=== PATIENT | female | born 2005 | race Caucasian/White ===

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

== ENCOUNTER 2023-07-21 22:02 | Emergency (ER) | payer OTHER, SELFPAY ==
[2023-07-21 22:12] VITALS: BP 117/87; PULSE 78; RESP 16; TEMP 36.9; O2SAT 99; BMI 29.1
--- NOTE | 2023-07-21 23:47 | ED.WOUNDLAC ---
HPI - Wound/Laceration General Chief Complaint: Wound/Laceration Stated Complaint: LT foream animal bite Time Seen by Provider: 07/21/23 23:34 Source: patient Mode of arrival: EMS Limitations: no limitations History of Present Illness HPI narrative: 17-year-old female who presents emergency department for evaluation of left forearm iguana bite. The patient's iguana, Blue, that her forearm this evening prior to coming to the emergency department. Patient states that she washed her wound out with Betadine and then applied butterfly dressing to the wound. Patient is concerned about possible infection so she came to the emergency department for evaluation. Patient's tetanus status is up-to-date. Related Data Previous Rx's Medication Instructions Recorded nitrofurantoin 100 mg PO Q12H 5 days #10 caps 12/16/21 monohydrate/macrocrystals 100 mg capsule (Macrobid) levofloxacin 500 mg tablet 500 mg PO DAILY 5 days #5 tabs 07/21/23 Allergies Allergy/AdvReac Type Severity Reaction Status Date / Time amoxicillin [AMOXICILLIN] Allergy Intermediate HIVES Verified 07/21/23 22:12 Review of Systems Review of Systems: Yes all other systems are reviewed and are negative [facility] Social History Social History Advance Directives: No Advance Directives Information Provided: No Physical Exam Vital Signs: Vital Signs: Last Vital Signs Temp 98.5 F 07/21/23 22:12 Pulse 78 07/21/23 22:12 Resp 16 07/21/23 22:12 BP 117/87 07/21/23 22:12 Pulse Ox 99 07/21/23 22:12 O2 Del Method Room Air 07/21/23 22:12 BMI result Body Mass Index 29.1 Vital signs were normal Exam General: awake, alert, female patient in no distress Left forearm evaluation: Patient has a linear 4.0 cm laceration which does appear to be full skin thickness, the laceration was closed with butterfly dressing by the patient with good opponens of the wound margins. No increased warmth, erythema or drainage of pus Medical Decision Making Medical Decision Making MDM Narrative: 17-year-old female who presents emergency department for evaluation of a guaiac light to her left forearm. Patient does have a 4 cm left forearm laceration she does appear to be full skin thickness but the patient close the wound with butterfly bandages with good opponens of the wound margins. Given that this could be a contaminated wound, stitches would not be appropriate. The butterfly bandages were left in place. Patient was started on prophylactic antibiotics, Levaquin 500 mg once a day for 5 days. She was given her 1st dose here in the emergency department. She was given printed and verbal instructions regarding infection and return precautions Differential Diagnosis Differential Diagnoses: The differential diagnosis associated with the presentation includes Differential diagnosis includes was not limited to laceration, contaminated wound Discharge Plan Discharge Clinical Impression: Bite wound from reptile Qualifiers: Encounter type: initial encounter Qualified Code(s): W59.81XA - Bitten by other nonvenomous reptiles, initial encounter Patient Disposition: Home, Self-Care Additional Instructions: Your wound is a contaminated bite wound therefore stitches would not be appropriate however continue to use the butterfly bandages to keep the wound closed. Watch for signs infection which would include increased redness, increased pain, red streaks traveling up the arm, fever, chills, fatigue or drainage of pus. I am starting you prophylactically on Levaquin 500 mg once a day for 5 days to try to prevent infection. Follow-up with your doctor in 2 days. Please return to the emergency department if your symptoms get worse or if you develop any symptoms that are concerning to you. Prescriptions: New levofloxacin 500 mg tablet 500 mg PO DAILY 5 Days Qty: 5 0RF No Action nitrofurantoin monohyd/m-cryst [Macrobid] 100 mg capsule 100 mg PO Q12H 5 Days Qty: 10 0RF Rx Instructions: must administer with a meal/food
[2023-07-22] MEDS: levoFLOXacin 500 MG TABLET PO (00:04)
== END 2023-07-22 00:06 | disposition home or self-care (01) ==
PROVIDERS: Emergency Provider Emergency Medicine Emergency Medical Services; PCP Nurse Practitioner Primary Care
DX: S51.852A Open bite of left forearm, initial encounter (principal); M79.602 Pain in left arm; W59.81XA Bitten by other nonvenomous reptiles, initial encounter; Y93.9 Activity, unspecified; Y92.9 Unspecified place or not applicable; Y99.8 Other external cause status
CPT/HCPCS: 99282; 99283